=== PATIENT | male | born 1995 | race Caucasian/White ===

== ENCOUNTER 2018-05-23 19:56 | Emergency (ER) | payer SELFPAY ==
[2018-05-23 20:02] VITALS: BP 107/64; PULSE 71; TEMP 98.6; BMI 23.7
--- NOTE | 2018-05-23 20:44 | PDOC ---
History of Present Illness - General Chief Complaint: Pain Stated Complaint: HEADACHE, COUGH Time Seen by Provider: 05/23/18 20:43 - History of Present Illness Initial Comments: 05/23/18 22:18 The patient is a 23 year old male, with no significant past medical history, who presents to the emergency today complaining of intermittent frontal headache for 2-3 weeks. Patient notes [facility] has [facility] [place] for the past 3 months, where he began experiencing a localized intermittent gradual onset dull headache 2-3 weeks ago. He states the headache has not changed in character recently. Pt states his pain resolves with ibuprofen when he takes it. He arrived home from [facility] last week, and his mom states she wanted him checked out here for the headaches since he does not have a PMD. Headache does not have a temporal association, is not worse in the morning or at night. Denies blurry vision, n/v, weakness or numbness. Denies fevers, chills , stiff neck, rashes. HEadache always comes on gradually. Patient notes he has not been drinking the suggested amount of water canteens (suggested was 12 a day , and he admits to having only 2 a day) during his time at the [facility] [place]. Denies dark urine or body aches. The patient denies chest pain, shortness of breath, and dizziness. Denies diarrhea and constipation. Denies dysuria, frequency, urgency and hematuria. Allergies: NKA Past surgical history: None reported Social history: No reported PCP: Not on staff ([facility]) Past History - Past Medical History Allergies/Adverse Reactions: Allergies Allergy/AdvReac Type Severity Reaction Status Date / Time No Known Allergies Allergy Verified 05/23/18 19:57 Home Medications: Ambulatory Orders Naproxen 500 mg PO BID PRN #14 tablet 05/23/18 COPD: No - Suicide/Smoking/Psychosocial Hx Smoking History: Never smoked Have you smoked in the past 12 months: No Information on smoking cessation initiated: No Hx Alcohol Use: (social) Review of Systems - Review of Systems Comments:: 05/23/18 22:29 GENERAL/CONSTITUTIONAL: No fever or chills. No weakness. HEAD, EYES, EARS, NOSE AND THROAT: No change in vision. No ear pain or discharge. No sore throat. GASTROINTESTINAL: No nausea, vomiting, diarrhea or constipation. GENITOURINARY: No dysuria, frequency, or change in urination. CARDIOVASCULAR: No chest pain or shortness of breath. RESPIRATORY: No cough, wheezing, or hemoptysis. MUSCULOSKELETAL: No joint or muscle swelling or pain. No neck or back pain. SKIN: No rash NEUROLOGIC: +Localized frontal headache. No vertigo, loss of consciousness, or change in strength/sensation. ENDOCRINE: No increased thirst. No abnormal weight change. HEMATOLOGIC/LYMPHATIC: No anemia, easy bleeding, or history of blood clots. ALLERGIC/IMMUNOLOGIC: No hives or skin allergy. *Physical Exam - Vital Signs Last Vital Signs Temp Pulse Resp BP Pulse Ox 98.6 F 71 18 107/64 98 05/23/18 19:56 05/23/18 19:56 05/23/18 19:56 05/23/18 19:56 05/23/18 19:56 - Physical Exam Comments: 05/23/18 22:29 GENERAL: Awake, alert, and fully oriented, in no acute distress. Well appearing. HEAD: No signs of trauma. No sinus ttp EYES: PERRLA, EOMI, sclera anicteric, conjunctiva clear ENT: Hearing grossly normal, nares patent, oropharynx clear without exudates. Moist mucosa NECK: Normal ROM, supple, no lymphadenopathy, JVD, or masses LUNGS: Breath sounds equal, clear to auscultation bilaterally. No wheezes, and no crackles HEART: Regular rate and rhythm, normal S1 and S2, no murmurs, rubs or gallops ABDOMEN: Soft, nontender, normoactive bowel sounds. No guarding, no rebound. No masses EXTREMITIES: Normal range of motion, no edema. No cords, erythema, or tenderness. WWP BACK: No midline spinal tenderness in cervical/thoracic/lumbar region NEUROLOGICAL: Normal speech, cranial nerves intact, 5/5 strength in all 4 extremities, normal sensation to light touch in all 4 extremities, normal cerebellar exam, normal gait, normal reflexes and tone. Able to walk in tandem. Normal FNF and heel to ruiz b/l SKIN: Warm, Dry, normal turgor, no rashes or lesions noted. Moderate Sedation - Procedure Monitoring Vital Signs: Procedure Monitoring Vital Signs Temperature 98.6 F 05/23/18 19:56 Pulse Rate 71 05/23/18 19:56 Respiratory Rate 18 01/07/19 19:56 Blood Pressure 107/64 01/07/19 19:56 O2 Sat by Pulse Oximetry (%) 98 05/23/18 19:56 Medical Decision Making - Medical Decision Making 05/23/18 22:31 23yo M presents to the ED with intermittent gradual onset frontal headaches for 2-3 weeks. Pt currently in [employer], admits to not drinking a lot of water. Likely dehydration induced tension headaches. Pt is very well appearing, with completely normal neuro exam. No need for emergent imaging at this time. No stiff neck, fevers, thunderclap quality, or sudden onset nature to headaches. Headache responds to NSAIDS. No headache currently. Pt has been referred to primary care and neurology for follow up. Naproxen prescribed, pt advised not to take motrin, advil, aleve, or other NSAIDs when he is taking naproxen. REturn precautions given I discussed the physical exam findings, ancillary test results and final diagnoses with the patient. I answered all of the patient's questions. The patient was satisfied with the care received and felt comfortable with the discharge plan and treatment plan. The patient will call their primary care physician within 24 hours to arrange follow-up and will return to the Emergency Department with any new, persistent or worsening symptoms. *DC/Admit/Observation/Transfer Diagnosis at time of Disposition: Headache - Discharge Dispostion Disposition: HOME Condition at time of disposition: Stable Decision to Admit order: No - Prescriptions Prescriptions: Naproxen 500 mg PO BID PRN #14 tablet PRN Reason: Pain - Referrals Referrals: [facility] [place] [facility] [place] [Provider Group] Sanjay Guillory MD [Staff Physician] - - Patient Instructions Printed Discharge Instructions: DI for Headache Additional Instructions: Follow up with a primary care doctor and neurologist within 1 week for follow up for your headaches. Take naproxen twice a day as needed for your headaches and bodyaches Do not take advil, ibuprofen, motrin, aleve, or any other NSAIDS while taking naproxen Stay hydrated and drink plenty of fluids! Return to the emergency department if you have any new, worsening, or concerning symptoms - Post Discharge Activity - Attestations Physician Attestion: 05/23/18 22:36 I, Dr. Hortencia Garza MD, attest that this document has been prepared under my direction and personally reviewed by me in its entirety. I further attest, that it accurately reflects all work, treatment, procedures and medical decision -making performed by me.
[2018-05-23] MEDS ORDERED: NAPROXEN 500 MG TABLET (FP) PO ONE (21:16)
[2018-05-23] MEDS ORDERED: NAPROXEN 500 MG TABLET (FP) ONE (21:19)
== END 2018-05-23 21:25 | disposition home or self-care (01) ==
LOC: FER 19:56
CPT/HCPCS: 99284-25